=== PATIENT | female | born 1945 | race Caucasian/White ===

== ENCOUNTER → 2016-12-31 | Outpatient (CLI) | payer MEDICARE, OTHER | END | disposition home or self-care (01) | LOC: CFH 12:47 | PROVIDERS: ATTEND Internal Medicine Cardiovascular Disease | DX: Z01.810 Encounter for preprocedural cardiovascular examination (principal); I08.3 Combined rheumatic disorders of mitral, aortic and tricuspid valves | CPT/HCPCS: 93306 ==

== ENCOUNTER → 2017-02-04 | Outpatient (CLI) | payer MEDICARE, OTHER | END | disposition home or self-care (01) | LOC: RAD 12:12 | PROVIDERS: ATTEND Neurological Surgery | DX: M41.84 Other forms of scoliosis, thoracic region (principal); Z98.890 Other specified postprocedural states; Z98.1 Arthrodesis status | CPT/HCPCS: 72082 ==

== ENCOUNTER → 2017-02-05 | Outpatient (CLI) | payer MEDICARE, OTHER | END | disposition home or self-care (01) | LOC: RAD 13:46 | PROVIDERS: ATTEND Neurological Surgery | DX: M51.36 Other intervertebral disc degeneration, lumbar region (principal); M51.37 Other intervertebral disc degeneration, lumbosacral region; M41.86 Other forms of scoliosis, lumbar region; M43.17 Spondylolisthesis, lumbosacral region; M48.07 Spinal stenosis, lumbosacral region; Z98.890 Other specified postprocedural states; G89.29 Other chronic pain | CPT/HCPCS: 72131 ==

== ENCOUNTER → 2017-02-08 | Outpatient (CLI) | payer MEDICARE, OTHER | END | disposition home or self-care (01) | LOC: CFH 12:19 | PROVIDERS: ATTEND Neurological Surgery | DX: I42.9 Cardiomyopathy, unspecified (principal); R94.31 Abnormal electrocardiogram [ECG] [EKG]; J98.9 Respiratory disorder, unspecified | CPT/HCPCS: 78452; 93017; A9502; J2785 ==

== ENCOUNTER → 2017-05-04 | Outpatient (CLI) | payer MEDICARE, OTHER | END | disposition home or self-care (01) | LOC: RAD 16:08 | PROVIDERS: ATTEND Neurological Surgery | DX: M48.54XA Collapsed vertebra, not elsewhere classified, thoracic region, initial encounter for fracture (principal); M43.17 Spondylolisthesis, lumbosacral region; J90 Pleural effusion, not elsewhere classified; Z98.890 Other specified postprocedural states; Z98.1 Arthrodesis status | CPT/HCPCS: 72082 ==

== ENCOUNTER → 2017-11-12 | Outpatient (CLI) | payer MEDICARE, OTHER | END | disposition home or self-care (01) | LOC: RAD 14:34 | PROVIDERS: ATTEND Neurological Surgery | DX: M43.17 Spondylolisthesis, lumbosacral region (principal); J90 Pleural effusion, not elsewhere classified; M41.9 Scoliosis, unspecified | CPT/HCPCS: 72082; 72100 ==

== ENCOUNTER → 2018-02-07 | Outpatient (CLI) | payer MEDICARE, OTHER | END | disposition home or self-care (01) | LOC: CFH 12:17 | PROVIDERS: ATTEND Neurological Surgery | DX: S32.19XA Other fracture of sacrum, initial encounter for closed fracture (principal); S32.302A Unspecified fracture of left ilium, initial encounter for closed fracture; M81.0 Age-related osteoporosis without current pathological fracture; M41.9 Scoliosis, unspecified; X58.XXXA Exposure to other specified factors, initial encounter; Y93.89 Activity, other specified; Y92.89 Other specified places as the place of occurrence of the external cause; Y99.8 Other external cause status | CPT/HCPCS: 72192 ==

== ENCOUNTER → 2018-04-12 | Outpatient (CLI) | payer MEDICARE, OTHER | END | disposition home or self-care (01) | LOC: RAD 14:04 | PROVIDERS: ATTEND Neurological Surgery | DX: M43.8X4 Other specified deforming dorsopathies, thoracic region (principal); J90 Pleural effusion, not elsewhere classified | CPT/HCPCS: 72082 ==

== ENCOUNTER 2018-05-30 11:55 | Day surgery (SDC) | payer MEDICARE, OTHER ==
[~2018-05-30] VITALS: Ht 157.5 cm; Wt 63.4 kg
[2018-05-30] MEDS ORDERED: DONE5TAB7 PO (12:53)
[2018-05-30] MEDS ORDERED: METH-356 PO (12:53)
[2018-05-30] MEDS ORDERED: ESOM20CA PO (12:53)
[2018-05-30] MEDS ORDERED: ALPR0.254 PO (12:53)
[2018-05-30] MEDS ORDERED: POTA10TA6 PO (12:53)
[2018-05-30] MEDS ORDERED: ESCI10TA PO (12:53)
[2018-05-30] MEDS ORDERED: GABA400C PO (12:53)
[2018-05-30] MEDS ORDERED: FURO-93 PO (12:53)
[2018-05-30] MEDS ORDERED: THYR90TA PO (12:53)
[2018-05-30 12:54] VITALS: BP 136/79
[2018-05-30] MEDS ORDERED: LIDOCAINE-MPF 1%, 5ML ONE (13:57)
== END 2018-05-30 16:00 | disposition home or self-care (01) ==
LOC: OUT 11:55
PROVIDERS: ATTEND Neurological Surgery
DX: M51.16 Intervertebral disc disorders with radiculopathy, lumbar region (principal); M41.86 Other forms of scoliosis, lumbar region; Z98.890 Other specified postprocedural states; Z90.710 Acquired absence of both cervix and uterus; Z90.49 Acquired absence of other specified parts of digestive tract; E89.0 Postprocedural hypothyroidism
CPT/HCPCS: 72128

== ENCOUNTER 2019-02-16 08:32 | Outpatient (CLI) | payer MEDICARE, OTHER | END 2019-02-16 23:59 | disposition home or self-care (01) | LOC: RAD 08:32 | PROVIDERS: ATTEND Neurological Surgery | DX: M48.54XA Collapsed vertebra, not elsewhere classified, thoracic region, initial encounter for fracture (principal); M41.84 Other forms of scoliosis, thoracic region; M48.061 Spinal stenosis, lumbar region without neurogenic claudication; M46.1 Sacroiliitis, not elsewhere classified; Z98.890 Other specified postprocedural states | CPT/HCPCS: 72082 ==

== ENCOUNTER 2019-03-06 08:37 | Outpatient (CLI) | payer MEDICARE, OTHER | END 2019-03-06 23:59 | disposition home or self-care (01) | LOC: RAD 08:37 | PROVIDERS: ATTEND Neurological Surgery | DX: M54.5 Low back pain (principal); M46.1 Sacroiliitis, not elsewhere classified | CPT/HCPCS: 72110 ==